=== PATIENT | female | born 1985 | race African-American/Black ===

== ENCOUNTER 2016-11-13 21:43 | Emergency (ER) | payer OTHER, SELFPAY ==
[2016-11-13] MEDS ORDERED: AMOXicillin 250 MG CAP ONE (22:04)
[2016-11-13] MEDS ORDERED: Benzonatate 100 MG CAP ONE (22:04)
[2016-11-13] MEDS ORDERED: Naproxen 500 MG TAB ONE (22:04)
[2016-11-13] MEDS ORDERED: HYDROcodone/Acetaminophen 10/325 mg Tablet ONE (22:04)
== END 2016-11-13 22:11 | disposition home or self-care (01) ==
LOC: MADERS 21:43
DX: J20.9 Acute bronchitis, unspecified (principal); J02.9 Acute pharyngitis, unspecified; F17.210 Nicotine dependence, cigarettes, uncomplicated
CPT/HCPCS: 99282